=== PATIENT | female | born 1965 | race Caucasian/White ===

== ENCOUNTER → 2017-06-14 | Outpatient (CLI) | payer BC ==
[2017-06-14 11:44] LABS: CHOLESTEROL/HDL RATIO 5.2
== END | disposition home or self-care (01) ==
LOC: C.LABBC 08:16
PROVIDERS: ATTEND Family Medicine
DX: Z00.00 Encounter for general adult medical examination without abnormal findings (principal); E78.00 Pure hypercholesterolemia, unspecified; Z13.1 Encounter for screening for diabetes mellitus

== ENCOUNTER → 2017-11-15 | Outpatient (CLI) | payer BC ==
--- NOTE | 2017-11-16 07:53 | MAMMOGRAPHY REPORT ---
BILATERAL DIGITAL SCREENING MAMMOGRAM TOMOSYNTHESIS WITH CAD: 11/15/2017 CLINICAL HISTORY: Routine screening. Patient has no complaints. TECHNIQUE: Breast tomosynthesis in addition to standard 2D mammography was performed. Current study was also evaluated with a Computer Aided Detection (CAD) system. COMPARISON: Comparison is made to exams dated: 11/13/2016 mammogram, 05/20/2016 mammogram, 12/04/2015 m ammogram, 11/19/2015 mammogram, 11/11/2015 mammogram, and 11/08/2014 mammogram - [facility]. BREAST COMPOSITION: The tissue of both breasts is heterogeneously dense, which may obscure small mas ses. FINDINGS: There are stable biopsy marker clips in both breasts. There are benign-appearing groupings of microcalcifications in the upper outer posterior right breast, near the biopsy marker clip and si milar to the microcalcifications biopsied, most likely additional benign calcifications. No new susp icious mass, architectural distortion or cluster of microcalcifications is seen. IMPRESSION: ACR BI-RADS CATEGORY 1: NEGATIVE There is no mammographic evidence of malignancy. A 1 year screening mammogram is recommended. The pa tient will receive written notification of the results. Approximately 10% of breast cancers are not detected with mammography. A negative mammographic report should not delay biopsy if a clinically suggestive mass is present. Tiffany Gómez M.D. ay/:11/15/2017 18:45:54 Cloth Winder: Soo APPIAH(R)(M), [facility] letter sent: Normal 1/2 BI-RADS Code: ACR BI-RADS Category 1: Negative
== END | disposition home or self-care (01) ==
LOC: C.MAMM 10:45
PROVIDERS: ATTEND Obstetrics & Gynecology
DX: Z12.31 Encounter for screening mammogram for malignant neoplasm of breast (principal)

== ENCOUNTER → 2018-06-15 | Outpatient (CLI) | payer BC ==
--- NOTE | 2018-06-15 09:08 | DIAGNOSTIC IMAGING REPORT ---
L HIP UNILATERAL 2 VIEWS, R HIP UNILATERAL 2 VIEWS HISTORY: 53 years-old Female M25.551 Hip pain, bilateralBilateral hip pain. R/o [id number] chronic bilateral hip pain without reported trauma COMPARISON: None available TECHNIQUE: 2 views of the bilateral hips for a total of 4 images. FINDINGS: RIGHT: Prominent subcortical cystic changes about the acetabulum with mild to moderate osteoarthritis about the femoral acetabular joint. No evidence of avascular necrosis, acute fracture or dislocation. No definite erosive changes. The imaged right hemipelvis appears intact. LEFT: Mild osteoarthritis of the left femoral acetabular joint. There are 2 corticated bone fragments about the lateral acetabulum measuring up to 5 mm suggesting sister ossicles or fragmented osteophytes. No acute fracture, dislocation or avascular necrosis. Imaged left hemipelvis appears intact. IMPRESSION: 1. No acute fracture or dislocation. 2. 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 3. Prominent subcortical cystic changes about the right acetabulum without definite erosive findings identified. Findings may be secondary to osteoarthritis or other primary arthropathy. The above report was generated using voice recognition software. It may contain grammatical, syntax or spelling errors. Electronically signed by: Murtaza Urbina M.D. 06/15/2018 9:07 AM Dictated Date/Time: 06/15/2018 9:03 AM
== END | disposition home or self-care (01) ==
LOC: C.LAB1850 08:48
PROVIDERS: ATTEND Family Medicine
DX: M25.551 Pain in right hip (principal); M25.552 Pain in left hip; M16.0 Bilateral primary osteoarthritis of hip

== ENCOUNTER 2018-07-11 21:01 | Emergency (ER) | payer BC ==
[~2018-07-11] VITALS: Ht 162.6 cm; Wt 75.0 kg
[2018-07-11 21:05] VITALS: TEMP 36.5; Ht 162.6 cm; Wt 75.0 kg
--- NOTE | 2018-07-11 21:42 | DIAGNOSTIC IMAGING REPORT ---
LEFT ANKLE 3 VIEWS HISTORY: Fall. Left ankle injury COMPARISON: None. FINDINGS: Nondisplaced fracture within the medial malleolus. Oblique fracture at the distal fibula which demonstrates up to 3 mm of posterior displacement. There is also nondisplaced posterior malleolus fracture. No dislocation. Soft tissue swelling within the left ankle. Small plantar and posterior calcaneal spurs. No radiopaque foreign bodies. IMPRESSION: 1. Trimalleolar left ankle fracture as described above. 2. Left ankle soft tissue swelling. Electronically signed by: Miguel Clements M.D. 07/11/2018 9:41 PM Dictated Date/Time: 07/11/2018 9:39 PM
--- NOTE | 2018-07-11 22:09 | DIAGNOSTIC IMAGING REPORT ---
LEFT FOOT 3 VIEWS HISTORY: Fall, L foot pain COMPARISON: None. FINDINGS: The left ankle fracture is again noted. No additional fractures identified within the left foot. The Lisfranc joint is intact. Soft tissues are unremarkable. No radiopaque foreign bodies. IMPRESSION: 1. Left ankle fracture. 2. No additional fractures identified within the left foot. Electronically signed by: Miguel Clements M.D. 07/11/2018 10:08 PM Dictated Date/Time: 07/11/2018 10:06 PM
[2018-07-11] MEDS ORDERED: MoRPHine SULFATE 10 MG/ML CARP/VIAL IM STA (22:34)
[2018-07-11] MEDS ORDERED: ONDANSETRON 4MG OD TAB PO STA (22:34)
[2018-07-11] MEDS ORDERED: OXYC-90 PO (23:17)
--- NOTE | 2018-07-11 23:18 | EMERGENCY ROOM VISIT NOTE ---
History First contact with patient: 21:28 Chief Complaint: ANKLE PAIN Stated Complaint: SLIPPED PAIN IN LEFT ANKLE History of Present Illness The patient is a 53 year old female who presents to the Emergency Room via private vehicle with complaints of "slipped, pain in left ankle". The patient states that earlier today she slipped, and injured her left ankle. She notes that it occurred around 7:30 PM. She was putting away in her tubes from a day out on the water. She points to the diffuse ankle joint as location of pain that she rates as an 8/10. She points to both the medial and lateral aspect that extends into the foot. She denies taking anything for pain thus far. She denies any numbness but notes minimal tingling sensation in the distal foot. Review of Systems A complete 6-point Review of Systems was discussed with the patient, with pertinent positives and negatives listed in the History of Present Illness. All remaining Review of Systems questions can be considered negative unless otherwise specified. Past Medical/Surgical History No pertinent. Family History No pertinent. Social History Smoking Status: Current Every Day Smoker Patient lives locally Current/Historical Medications Scheduled PRN Oxycodone Ir (Roxicodone Ir), 1 TAB PO Q4H PRN for Pain Physical Exam Vital Signs Date Time Temp Pulse Resp B/P (MAP) Pulse Ox O2 Delivery O2 Flow Rate FiO2 07/11/18 23:22 61 18 124/78 98 Room Air 07/11/18 21:05 36.5 64 18 131/81 100 Room Air Physical Exam VITAL SIGNS - Vital signs and nursing notes were reviewed. Stable. GENERAL -53-year-old female appearing her stated age who is in no acute distress. Communicates well with provider and answers questions appropriately. SKIN - Without rashes. The left ankle region is edematous, and erythematous. The skin is intact. No evidence of bony deformity to examination. EXTREMITIES - No clubbing or peripheral cyanosis. No pretibial edema present. Skin findings as above. There is tenderness overlying the medial lateral malleolus regions extending. Decreased range of motion secondary to tenderness. She is neurovascularly intact in the distal left foot. There is no proximal ross or knee tenderness. +5/5 strength noted in UE/LE bilaterally. Medical Decision & Procedures ER Provider Diagnostic Interpretation: LEFT ANKLE 3 VIEWS HISTORY: Fall. Left ankle injury COMPARISON: None. FINDINGS: Nondisplaced fracture within the medial malleolus. Oblique fracture at the distal fibula which demonstrates up to 3 mm of posterior displacement. There is also nondisplaced posterior malleolus fracture. No dislocation. Soft tissue swelling within the left ankle. Small plantar and posterior calcaneal spurs. No radiopaque foreign bodies. IMPRESSION: 1. Trimalleolar left ankle fracture as described above. 2. Left ankle soft tissue swelling. Electronically signed by: Miguel Clements M.D. 07/11/2018 9:41 PM Dictated Date/Time: 07/11/2018 9:39 PM LEFT FOOT 3 VIEWS HISTORY: Fall, L foot pain COMPARISON: None. FINDINGS: The left ankle fracture is again noted. No additional fractures identified within the left foot. The Lisfranc joint is intact. Soft tissues are unremarkable. No radiopaque foreign bodies. IMPRESSION: 1. Left ankle fracture. 2. No additional fractures identified within the left foot. Electronically signed by: Miguel Clements M.D. 07/11/2018 10:08 PM Dictated Date/Time: 07/11/2018 10:06 PM Medications Administered Medications (Trade) Dose Ordered Sig/Phil Route Start Time Stop Time Status Last Admin Dose Admin Morphine Sulfate (MoRPHine SULFATE INJ) 6 mg NOW STAT IM 07/11/18 22:34 07/11/18 22:35 DC 07/11/18 22:43 6 MG Ondansetron HCl (Zofran Odt) 4 mg NOW STAT PO 07/11/18 22:34 07/11/18 22:35 DC 07/11/18 22:43 4 MG Medical Decision Patient was seen and evaluated as above in room D6. Review was performed of nursing notes and vital signs. After obtaining a thorough history and physical examination the above work up was performed. She presents to us today status post mechanical fall with left ankle pain. The integument is intact. X-rays were obtained of both the foot and ankle. There is a trimalleolar fracture. She is neurovascularly intact. She declined pain medication initially, then requested something for pain. She was then given IM morphine as well as sublingual Zofran. Ice packs were applied and the ankle was elevated. I discussed the case with the attending physician and subsequently the on-call orthopedic surgeon, Dr. Erickson. He recommended a 3 sided Ortho-Glass splint, nonweightbearing, and follow-up in his office by her calling first thing tomorrow morning to be either seen tomorrow or thing . I believe this is reasonable. Patient was educated upon this. She was educated upon risk of compartment syndrome. She was neurovascularly intact post splinting. Questions were answered. She will be given a short prescription for oxycodone for pain. No red flags in the PDMP. The patient was educated upon management, educated upon todays findings/results, educated upon symptoms in which to return , had questions answered prior to discharge, and was discharged home in good condition. Case was discussed with the attending physician. In the evaluation and treatment of this patient, the following differential diagnoses were considered: Ankle Fracture, Ankle Sprain, Distal Fibula Fracture , Distal Tibia Fracture, Foot Fracture, Maisonneuve Fracture. Impression Primary Impression: Trimalleolar fracture of ankle, closed Departure Information Dispostion Home / Self-Care Condition GOOD Prescriptions Oxycodone Ir (Roxicodone Ir) 5 Mg Tab 1 TAB PO Q4H Y for Pain, #18 TAB For Initial Treatment Prov: Ez Montilla PA-C 07/11/18 Referrals Steph Silver MD (PCP) Cayden Erickson D.O. Patient Instructions My [facility] Additional Instructions You have been treated in the Emergency Department for a left Ankle fracture ( trimalleolar fracture). You have received pain medicine in the emergency department which impairs your ability to operate a vehicle. It is illegal for you to drive after receiving these medicines. You have been prescribed oxycodone immediate release to be used for pain control. This is a narcotic medication. You cannot drive or consume alcohol while on this medicine. This medicine should only be used for pain that cannot be controlled with [id number] pain medicines. For pain control, you can use the following [id number] medicines (if >12 yo): - Regular strength (325mg/tab) Tylenol (acetaminophen) 2 tabs every 4-6 hours as needed. Do not exceed 12 tablets in a 24 hour period. Avoid taking more than 3 grams (3000 mg) of Tylenol per day. This includes any other sources of acetaminophen you may take on a regular basis. - Regular strength (200 mg/tab) Advil (ibuprofen) 1-2 tabs every 4-6 hours as needed. Do not exceed a dose of 3200 mg per day. If this is a recent injury (<24 hrs), ice can be applied to the area of pain for the first 3 days to help decrease pain and inflammation. You have been provided the number for an Orthopaedic Surgeon. You should call this number as soon as possible to establish a follow-up visit from today's Emergency Department visit. Keep the ankle brace/splint in place until cleared by Orthopedics. Use the crutches you have been provided to keep ALL weight off of the ankle until weight bearing is tolerable. Return to the Emergency Department if your current symptoms worsen despite treatment course outlined above, or if you develop any of the following symptoms : intractable pain despite aforementioned treatment course or new onset of numbness or tingling of the foot.
[2018-07-11] MEDS ORDERED: OXYCODONE IR HOME PACK PO STA (23:19)
[2018-07-11 23:22] VITALS: BP 124/78; PULSE 61; O2SAT 98
== END 2018-07-11 23:25 | disposition home or self-care (01) ==
LOC: C.EDB 21:04 → C.EDD 23:25
DX: S82.852A Displaced trimalleolar fracture of left lower leg, initial encounter for closed fracture (principal); W01.0XXA Fall on same level from slipping, tripping and stumbling without subsequent striking against object, initial encounter; F17.200 Nicotine dependence, unspecified, uncomplicated

== ENCOUNTER → 2018-07-14 | Outpatient (CLI) | payer BC ==
[~2018-07-14] MED LIST: OXYC-90 PO
== END | disposition home or self-care (01) ==
LOC: C.CPL 14:48
PROVIDERS: ATTEND Orthopaedic Surgery Sports Medicine
DX: S82.852A Displaced trimalleolar fracture of left lower leg, initial encounter for closed fracture (principal); X58.XXXA Exposure to other specified factors, initial encounter